=== PATIENT | male | born 1965 | race Caucasian/White ===

== ENCOUNTER 2020-02-29 16:39 | Emergency (ER) | payer OTHER ==
[~2020-02-29] VITALS: Ht 177.8 cm; Wt 108.9 kg
[2020-02-29 16:45] VITALS: Ht 177.8 cm; Wt 108.9 kg
[2020-02-29 22:50] VITALS: BP 185/99
== END 2020-02-29 22:50 | disposition home or self-care (01) ==
LOC: ED 16:39
DX: S92.002A Unspecified fracture of left calcaneus, initial encounter for closed fracture (principal); W11.XXXA Fall on and from ladder, initial encounter; Y93.89 Activity, other specified; Y92.89 Other specified places as the place of occurrence of the external cause; Y99.8 Other external cause status
CPT/HCPCS: J1885; Q0092; Q0162

== ENCOUNTER 2020-06-04 23:42 | Emergency (ER) | payer OTHER ==
[~2020-06-04] VITALS: Ht 172.7 cm; Wt 109.9 kg
[~2020-06-04 23:42] MED LIST: APAP/HYDROCODON1 T13 PO; HEPARIN SO5000 UNIT/ IJ; MOT600 PO; ZESTRIL5 MG PO
[2020-06-05 00:07] VITALS: Ht 172.7 cm; Wt 109.9 kg
[2020-06-05 01:01] LABS: BASOPHIL % 0 % (0-2); PLATELET COUNT 114 x10^3mcL (130-400); RED CELL DISTRIBUTION WIDTH 13.2 % (11.5-14.5)
[2020-06-05 01:12] LABS: CARBON DIOXIDE 20.7 mmol/L (21-32); CHLORIDE SERUM 96 mmol/L (98-107); CREATININE SERUM 1.1 mg/dL (0.7-1.3); GFR1 > 60 mL/min; GLUCOSE SERUM 285 mg/dL (74-106); POTASSIUM SERUM 3.6 mmol/L (3.5-5.1); SODIUM SERUM 130 mmol/L (136-145)
[2020-06-05 01:17] LABS: ALBUMIN 3.8 g/dL (3.4-5.0); ALKALINE PHOSPHATASE 102 U/L (46-116); ALT/SGPT 46 U/L (16-63); AST/SGOT 31 U/L (15-37); BILIRUBIN TOTAL 0.88 mg/dL (0.20-1.00); TOTAL PROTEIN, SERUM 7.8 g/dL (6.4-8.2)
[2020-06-05 02:28] LABS: microscopic required? YES; urine erythrocyte 2+ (NEGATIVE)
[2020-06-05 04:25] VITALS: BP 138/63
== END 2020-06-05 03:45 | disposition home or self-care (01) ==
LOC: ED 23:42
PROVIDERS: Student in an Organized Health Care Education/Training Program
DX: N20.1 Calculus of ureter (principal); E87.1 Hypo-osmolality and hyponatremia; N39.0 Urinary tract infection, site not specified; I10 Essential (primary) hypertension
CPT/HCPCS: J1885; J2270

== ENCOUNTER 2020-08-19 13:57 | Emergency (ER) | payer OTHER ==
[~2020-08-19] VITALS: Ht 172.7 cm; Wt 108.9 kg
[2020-08-19 13:59] VITALS: Ht 172.7 cm; Wt 108.9 kg
[2020-08-19 23:34] VITALS: BP 124/74
== END 2020-08-19 23:34 | disposition home or self-care (01) ==
LOC: ED 13:57
DX: U07.1 COVID-19 (principal); J12.82 Pneumonia due to coronavirus disease 2019
CPT/HCPCS: 36600; M0239; Q0239